=== PATIENT | male | born 1995 | race Caucasian/White ===

== ENCOUNTER 2016-11-30 19:18 | Emergency (ER) | payer OTHER ==
[~2016-11-30] VITALS: Ht 175.3 cm; Wt 81.0 kg
[2016-11-30 19:21] VITALS: Ht 175.3 cm; Wt 81.0 kg
[2016-11-30] MEDS ORDERED: IBUP-1542 PO (19:43)
--- NOTE | 2016-11-30 19:48 | ERD ---
ER Documentation Chief Complaint Date/Time DATE: 11/30/16 TIME: 19:47 Chief Complaint c/o right arm and right thumb pain s/p slipped off 3 steps yesterday. HPI 19-year-old male presents to the emergency department complaining of right thumb pain status post slipping and falling on outstretched hand yesterday. Patient denies any restricted range of motion. He admits to having mild pain. He denies taking any medication for this ROS All systems reviewed and are negative except as per history of present illness. Medications Home Meds Active Scripts Ibuprofen* (Motrin*) 600 Mg Tab, 600 MG PO Q6H Y for PAIN AND OR ELEVATED TEMP, #30 TAB Prov:AMBER ROSS PA-C 11/30/16 Allergies Allergies: Coded Allergies: No Known Allergy (Unverified , 03/15/14) Physical Exam Vitals Vital Signs Date Time Temp Pulse Resp B/P Pulse Ox O2 Delivery O2 Flow Rate FiO2 11/30/16 19:21 97.7 104 18 132/79 98 Physical Exam GENERAL: well-developed/well-nourished, in no apparent distress, non-toxic appearing HENT: NC/AT, bilateral tympanic membrane is normal with good cone of light, nares patent, oropharynx clear without exudates EYES: Conjunctiva normal, PERRLA, EOMI, no nystagmus noted NECK: Supple, no lymphadenopathy PULM: CTA bilaterally, no rales, rhonchi, or wheezing heard CV: Normal S1S2, RRR, good capillary refill GI: Soft, non-distended, normal bowel sounds, non-tender BACK: No midline tenderness, no masses, No CVAT EXT: Mild tender to palpation on the right thumb, patient has full range of motion, negative snuffbox tenderness NEURO: Alert and orientated to person, place, and time. CN II-IIX intact. Gait and coordination were normal. 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 There was no evidence of any fracture dislocation on examination. No evidence of snuffbox tenderness. Patient had full range of motion of his digits and the PIP DIP. He was given a Velcro splint. Patient stable and neurovascular intact to be discharged home. Return precautions were given. Ibuprofen provided Departure Diagnosis: Primary Impression: Thumb pain Condition: Stable Patient Instructions: Sprain Hand AMBER ROSS PA-C Nov 30, 2016 19:48
== END 2016-11-30 19:52 | disposition home or self-care (01) ==
LOC: FTE 19:18
DX: M79.644 Pain in right finger(s) (principal)
CPT/HCPCS: 29125; Z7502

== ENCOUNTER 2017-04-01 22:19 | Emergency (ER) | END 2017-04-02 03:42 | disposition left against medical advice (07) ==

== ENCOUNTER 2017-08-31 01:37 | Emergency (ER) | END 2017-08-31 05:20 | disposition home or self-care (01) ==

== ENCOUNTER 2018-02-28 18:18 | Emergency (ER) | payer BC, MEDICAID, OTHER ==
[~2018-02-28] VITALS: Ht 167.6 cm; Wt 79.9 kg
[~2018-02-28 18:18] MED LIST: IBUP-1542 PO; ONDA4TAB14 PO; RANI150T35 PO; SUCR1TAB56 PO
[2018-02-28 18:21] VITALS: Ht 167.6 cm; Wt 79.9 kg
[2018-02-28] MEDS ORDERED: ACETAMINOPHEN 325 MG TAB PO ONE (20:00)
[2018-02-28] MEDS ORDERED: IBUPROFEN 600 MG TAB PO ONE (20:00)
[2018-02-28] MEDS ORDERED: OSLT75C PO (20:04)
[2018-02-28] MEDS ORDERED: D-ME473S2 PO (20:04)
[2018-02-28] MEDS ORDERED: IBUP-1542 PO (20:04)
--- NOTE | 2018-02-28 20:05 | ERD ---
ER Documentation Chief Complaint Chief Complaint Complains of cough, colds and flu symptoms x 1 week HPI 22-year-old male presents with fever, cough and body aches for last week. He has no chest pain, vomiting, abdominal pain. Cough is dry. ROS All systems reviewed and are negative except as per history of present illness. Medications Home Meds Active Scripts Oseltamivir Phosphate* (Tamiflu*) 75 Mg Capsule, 75 MG PO BID for 5 Days, CAP Prov:SAWYER RENEE MD 02/28/18 Dextromethorphan Hb-Promethazine Hcl* (Promethazine DM* Syrup) 473 Ml Syrup, 5 ML PO Q6 PRN for COUGH for 5 Days, ML Prov:SAWYER RENEE MD 02/28/18 Ibuprofen* (Motrin*) 600 Mg Tab, 600 MG PO Q6, #20 TAB Prov:SAWYER RENEE MD 02/28/18 Ondansetron (Ondansetron Odt) 4 Mg Tab.rapdis, 4 MG PO Q6H PRN for NAUSEA AND/OR VOMITING, #10 TAB Prov:SETH BAIRES 08/31/17 Ranitidine Hcl* (Zantac*) 150 Mg Tablet, 150 MG PO BID PRN for EPIGASTRIC PAIN, #30 TAB Prov:SETH BAIRES 08/31/17 Sucralfate* (Carafate*) 1 Gm Tab, 1 GM PO QID, #60 TAB Prov:SETH BAIRES 08/31/17 Ibuprofen* (Motrin*) 600 Mg Tab, 600 MG PO Q6H PRN for PAIN AND OR ELEVATED TEMP, #30 TAB Prov:AMBER ROSS PA-C 11/30/16 Allergies Allergies: Coded Allergies: No Known Allergy (Unverified , 03/15/14) PMhx/Soc History of Surgery: No Anesthesia Reaction: No Hx Neurological Disorder: No Hx Respiratory Disorders: No Hx Cardiac Disorders: No Hx Psychiatric Problems: Yes (Anxiety) Hx Miscellaneous Medical Probl: No Hx Alcohol Use: Yes Hx Substance Use: No Hx Tobacco Use: Yes (3 months ago last) Smoking Status: Former smoker FmHx Family History: No diabetes, No coronary disease, No other Physical Exam Vitals Vital Signs Date Temp Pulse Resp B/P (MAP) Pulse Ox O2 O2 Flow FiO2 Time Delivery Rate 02/28/18 98.9 98 18 134/78 97 Room Air 20:25 (96) 02/28/18 101.6 19:55 02/28/18 101.6 19:54 02/28/18 101.6 128 20 147/93 98 18:21 (111) Physical Exam Const: No acute distress Head: Atraumatic Eyes: Normal Conjunctiva ENT: Normal External Ears, Nose and Mouth. TMs and oropharynx normal. Neck: Full range of motion. No meningismus. Resp: Clear to auscultation bilaterally. Coarse cough without rales, wheezing or retractions. Cardio: Regular rate and rhythm, no murmurs Abd: Soft, non tender, non distended. Normal bowel sounds Skin: No petechiae or rashes Back: No midline or flank tenderness Ext: No cyanosis, or edema Neur: Awake and alert Psych: Normal Mood and Affect Results 24 hrs Current Medications Medications Dose Sig/Rhett Start Time Status Last (Trade) Ordered Route PRN Stop Time Admin Dose Reason Admin 650 mg ONCE ONCE 02/28/18 DC 02/28/18 Acetaminophen PO 20:00 02/28/18 19:55 (Tylenol 20:01 Tab) Ibuprofen 600 mg ONCE ONCE 02/28/18 DC 02/28/18 (Motrin) PO 20:00 02/28/18 19:54 20:01 Procedures/MDM Patient presents with 2-week history of dry cough, body aches, fever, suggestive of influenza. He has no signs of respiratory distress or hypoxemia. We will treat empirically with Tamiflu, promethazine, fever control, primary care follow-up and return precautions. Patient's spouse is here recently delivered a baby. Patient was counseled on avoidance of until symptoms resolve. The patient was stable with no new complaints during the ER course. Clinically, there is no current evidence to suggest meningitis, sepsis, acute abdomen, pneumonia, stroke, acute coronary syndrome, pulmonary embolism, aortic dissection or any other emergent condition appearing to require further evaluation or hospitalization. Patient counseled regarding my diagnostic impression and care plan. Prior to discharge all questions answered. Pt agrees with treatment plan and understands strict return precautions. Pt is instructed to follow up with primary care provider within 24-48 hours. Precautionary instructions provided including instructions to return to the ER if not improving or for any worsening or changing symptoms or concerns. Departure Diagnosis: Primary Impression: Influenza-like symptoms Condition: Stable Patient Instructions: Influenza (Adult) Additional Instructions: Likely influenza. Recheck for new or worsening symptoms with primary care doctor. Avoid contact with until symptoms resolve. SAWYER RENEE MD Feb 28, 2018 20:05
[2018-02-28 20:25] VITALS: BP 134/78; PULSE 98; RESP 18
== END 2018-02-28 20:20 | disposition home or self-care (01) ==
LOC: FTE 18:18
DX: R05 Cough (principal); R50.9 Fever, unspecified; R52 Pain, unspecified; Z87.891 Personal history of nicotine dependence
CPT/HCPCS: Z7502; Z7610; 99283

== ENCOUNTER 2018-06-11 18:47 | Emergency (ER) | payer SELFPAY ==
[~2018-06-11] VITALS: Ht 175.3 cm; Wt 82.1 kg
[~2018-06-11 18:47] MED LIST changes: +D-ME473S2 PO; +OSEL75CA23 PO
[2018-06-11 18:54] VITALS: BP 139/83; PULSE 102; RESP 20; Ht 175.3 cm; Wt 82.1 kg
== END 2018-06-11 21:50 | disposition left against medical advice (07) ==
LOC: FTE 18:47
DX: Z53.21 Procedure and treatment not carried out due to patient leaving prior to being seen by health care provider (principal)

== ENCOUNTER 2018-08-03 10:28 | Emergency (ER) | payer SELFPAY ==
[~2018-08-03] VITALS: Ht 172.7 cm; Wt 80.0 kg
[2018-08-03 10:31] VITALS: BP 139/74; PULSE 99; RESP 18; Ht 172.7 cm; Wt 80.0 kg
[2018-08-03] MEDS ORDERED: DOCU-144 PO (10:47)
[2018-08-03] MEDS ORDERED: PSYL575P18 PO (10:47)
--- NOTE | 2018-08-03 10:49 | ERD ---
ER Documentation Chief Complaint Chief Complaint CONSTIPATION X 1 DAY HPI 22-year-old male presenting with constipation x1 day without abdominal pain. Patient states his last bowel movement was yesterday but was small. Patient denies any blood in stool patient denies any urinary symptoms. Patient is not currently taking any medications, denies allergies to medications, denies past surgical history. ROS All systems reviewed and are negative except as per history of present illness. Medications Home Meds Active Scripts Psyllium Husk (with Sugar) (Metamucil Powder) 575 Gm Powder, 575 GM PO AC A for 10 Days Prov:ALIREZA LUTHER PA-C 08/03/18 Docusate Sodium* (Colace*) 100 Mg Capsule, 100 MG PO TID, #30 CAP Prov:ALIREZA LUTHER PA-C 08/03/18 Oseltamivir Phosphate* (Tamiflu*) 75 Mg Capsule, 75 MG PO BID for 5 Days, CAP Prov:SAWYER RENEE MD 02/28/18 Dextromethorphan Hb-Promethazine Hcl* (Promethazine DM* Syrup) 473 Ml Syrup, 5 ML PO Q6 PRN for COUGH for 5 Days, ML Prov:SAWYER RENEE MD 02/28/18 Ibuprofen* (Motrin*) 600 Mg Tab, 600 MG PO Q6, #20 TAB Prov:SAWYER RENEE MD 02/28/18 Ondansetron (Ondansetron Odt) 4 Mg Tab.rapdis, 4 MG PO Q6H PRN for NAUSEA AND/OR VOMITING, #10 TAB Prov:SETH BAIRES 08/31/17 Ranitidine Hcl* (Zantac*) 150 Mg Tablet, 150 MG PO BID PRN for EPIGASTRIC PAIN, #30 TAB Prov:SETH BAIRES 08/31/17 Sucralfate* (Carafate*) 1 Gm Tab, 1 GM PO QID, #60 TAB Prov:SETH BAIRES 08/31/17 Ibuprofen* (Motrin*) 600 Mg Tab, 600 MG PO Q6H PRN for PAIN AND OR ELEVATED TEMP, #30 TAB Prov:AMBER ROSS PA-C 11/30/16 Allergies Allergies: Coded Allergies: No Known Allergy (Unverified , 03/15/14) PMhx/Soc Medical and Surgical Hx: pt denies Surgical Hx History of Surgery: No Anesthesia Reaction: No Hx Neurological Disorder: No Hx Respiratory Disorders: No Hx Cardiac Disorders: No Hx Psychiatric Problems: Yes (Anxiety) Hx Miscellaneous Medical Probl: No Hx Alcohol Use: Yes (social) Hx Substance Use: No Hx Tobacco Use: Yes (3 months ago last) Smoking Status: Former smoker Physical Exam Vitals Vital Signs Date Temp Pulse Resp B/P (MAP) Pulse Ox O2 O2 Flow FiO2 Time Delivery Rate 08/03/18 98.1 99 18 139/74 99 10:31 (95) Physical Exam GENERAL: The patient is well-appearing, well-nourished, in no acute distress HEENT: Atraumatic. Conjunctivae are pink. Pupils equal, round, and reactive to light. There is no scleral icterus. Tympanic membranes clear bilaterally. Oropharynx clear. No nystagmus or photophobia. NECK: C-spine is soft and supple. There is no meningismus. There is no cervical lymphadenopathy. CHEST: Clear to auscultation bilaterally. There are no rales, wheezes or r honchi. HEART: Regular rate and rhythm. No murmurs, clicks, rubs or gallops. ABDOMEN:Soft, nontender and nondistended. Good bowel sounds. No rebound or guarding. No gross peritonitis. No gross organomegaly or masses. No Delatorre sign or McBurney point tenderness. BACK: No midline or flank tenderness. Procedures/MDM Medical decision makin-year-old male presented to ER for constipation x1 day. Patient states this first time this happened and he was able to have a small bowel movement yesterday. Patient denies any abdominal pain or any blood present in his urine or stool. Physical exam was unremarkable patient's abdomen was soft nontender, patient had no CVA tenderness. At this time I have low suspicion for coronary syndrome, AAA, mesenteric ischemia, lower lobe pneumonia, DKA, bowel perforation, cholecystitis, choledocholithiasis, ascending cholangitis, hepatic abscess, pancreatitis, PUD, gastritis, GERD, splenic rupture, diverticulitis, UTI, pyelonephritis, nephrolithiasis, appendicitis, constipation, testicular torsion, epididymitis, urethritis, or prostatitis. Patient is being discharged with a prescription for Metamucil and Colace. Patient was advised if symptoms do not improve or worsen to return to the ER immediately. Otherwise follow-up with his primary care provider in 1 to 2 days regarding this visit. All questions were answered upon discharge and patient's in agreement to treatment plan Prescription for home: Metamucil Colace Discharge: At this time, patient is stable for discharge and outpatient management. I have instructed the patient to follow-up with his\her primary care physician in 1 to 2 days. I have discussed with the patient the possibility of needing to see a specialist for further work-up and imaging studies if symptoms persist. I have instructed the patient to promptly return to the ER for any new or worsening symptoms including increased pain, fever, nausea, vomiting, weakness or LOC. The patient and\or family expressed understanding of and agreement with this plan. All questions were answered. Home care instructions were provided. Disclaimer: Inadvertent spelling and grammatical errors are likely due to EHR\dictation software use and do not reflect on the overall quality of patient care. Also, please note that the electronic time recorded on the note does not necessarily reflect the actual time of the patient encounter. Departure Diagnosis: Primary Impression: Constipation Constipation type: unspecified constipation type Qualified Codes: K59.00 - Constipation, unspecified Condition: Stable Patient Instructions: Constipation (Adult) Referrals: [facility] YOU HAVE RECEIVED A MEDICAL SCREENING EXAM AND THE RESULTS INDICATE THAT YOU DO NOT HAVE A CONDITION THAT REQUIRES URGENT TREATMENT IN THE EMERGENCY DEPARTMENT. FURTHER EVALUATION AND TREATMENT OF YOUR CONDITION CAN WAIT UNTIL YOU ARE SEEN IN YOUR DOCTORS OFFICE WITHIN THE NEXT 1-2 DAYS. IT IS YOUR RESPONSIBILITY TO MAKE AN APPOINTMENT FOR FOLOW-UP CARE. IF YOU HAVE A PRIMARY DOCTOR --you should call your primary doctor and schedule an appointment IF YOU DO NOT HAVE A PRIMARY DOCTOR YOU CAN CALL OUR PHYSICIAN REFERRAL HOTLINE AT IF YOU CAN NOT AFFORD TO SEE A PHYSICIAN YOU CAN CHOSE FROM THE FOLLOWING [facility] [address] [facility] [address] [facility] [facility] [address] [facility] [address] [facility] [address] [facility]. [facility] [address] [facility] YOU HAVE RECEIVED A MEDICAL SCREENING EXAM AND THE RESULTS INDICATE THAT YOU DO NOT HAVE A CONDITION THAT REQUIRES URGENT TREATMENT IN THE EMERGENCY DEPARTMENT. FURTHER EVALUATION AND TREATMENT OF YOUR CONDITION CAN WAIT UNTIL YOU ARE SEEN IN YOUR DOCTORS OFFICE WITHIN THE NEXT 1-2 DAYS. IT IS YOUR RESPONSIBILITY TO MAKE AN APPOINTMENT FOR FOLOW-UP CARE. IF YOU HAVE A PRIMARY DOCTOR --you should call your primary doctor and schedule and appointment IF YOU DO NOT HAVE A PRIMARY DOCTOR YOU CAN CALL OUR PHYSICIAN REFERRAL HOTLINE AT . IF YOU CAN NOT AFFORD TO SEE A PHYSICIAN YOU CAN CHOSE FROM THE FOLLOWING [facility] INSTITUT[facility]: [facility] [address] [place] [address] [facility] [address] [place], [place] [id number] [place] [address] + [facility] [address] [place] [address] Additional Instructions: Call your primary care doctor TOMORROW for an appointment during the next 1 WEEK.Tell the confidential secretary that you were referred from this facility.See the doctor sooner or return here if your condition worsens before your appointment time. ALIREZA LUTHER PA-C Aug 03, 2018 10:49
== END 2018-08-03 11:03 | disposition home or self-care (01) ==
LOC: FTE 10:28
DX: K59.00 Constipation, unspecified (principal); Z87.891 Personal history of nicotine dependence
CPT/HCPCS: 99282